=== PATIENT | male | born 1980 | race Caucasian/White ===

== ENCOUNTER 2022-12-19 14:33 | Inpatient (IN) | payer OTHER ==
[~2022-12-19] VITALS: Ht 172.7 cm; Wt 73.9 kg
[2022-12-19 14:53] VITALS: BP 145/81
[2022-12-19 15:46] LABS: BASO # 0.1 10*3/uL (0.0-0.1); BASO % 0.5 % (0.0-1.0); EOS # 0.3 10*3/uL (0.0-0.4); EOS % 3.4 % (1.0-4.0); HEMATOCRIT 44.9 % (42.0-52.0); LYMPH # 2.2 10*3/uL (1.3-4.4); LYMPH % 22.3 % (27.0-41.0); MEAN CELL VOLUME 92.2 fl (80.0-94.0); MEAN CORPUSCULAR HGB 31.2 pg (27.0-31.0); MEAN CORPUSCULAR HGB CONC 33.9 g/dl (33.0-37.0); MEAN PLATELET VOLUME 9.9 fl (9.6-12.3); MONO % 9.6 % (3.0-9.0); NEUT # 6.3 10*3/uL (2.3-7.9); NEUT % 63.6 % (47.0-73.0); PLATELET COUNT AUTOMATED 197 10*3/uL (130-400); RED BLOOD COUNT 4.87 10*6/uL (4.50-5.90); RED CELL DISTRI WIDTH 13.5 % (0-14.5)
[2022-12-19 16:00] LABS: ACT PARTIAL THROMBO TIME 28.5 SECONDS (20.0-32.1)
[2022-12-19 16:06] LABS: ALKALINE PHOSPHATASE 77 U/L (46-116); BUN 13 mg/dl (9-23); CHLORIDE 100 mmol/L (98-107); LIPASE 24 U/L (12-53); POTASSIUM 5.4 mmol/L (3.4-5.1); SGPT/ALT 32 U/L (10-49); TOTAL PROTEIN 7.6 gm/dL (6.0-8.0)
[2022-12-19 22:15] VITALS: BP 131/55
[2022-12-19] MEDS ORDERED: SUBOXONE 8 MG-1 EACH SL (22:38)
[2022-12-19] MEDS ORDERED: LIBRIUM5 MG PO (22:40)
[2022-12-19] MEDS ORDERED: NATURE'S BLEND F1 MG PO (22:40)
[2022-12-19] MEDS ORDERED: NEURONTIN400 MG PO (22:41)
[2022-12-19] MEDS ORDERED: MAGNESIUM200 MG PO (22:42)
[2022-12-19] MEDS ORDERED: PENICILLIN250 MG PO (22:43)
[2022-12-19] MEDS ORDERED: NATURE'S BLEND100 M2 PO (22:43)
[2022-12-19] MEDS ORDERED: TYLENOL325 M1 PO (22:44)
[2022-12-19] MEDS ORDERED: CLONIDINE HCL0.1 M1 PO (22:45)
[2022-12-19] MEDS ORDERED: COLACE100 MG PO (22:46)
[2022-12-19] MEDS ORDERED: ATARAX,VISTARIL50 MG PO (22:47)
[2022-12-19] MEDS ORDERED: MELATONIN10 M4 PO (22:48)
[2022-12-19] MEDS ORDERED: Motrin,Rufen800 MG PO (22:48)
[2022-12-19] MEDS ORDERED: LOPERAMIDE HCL2 MG PO (22:48)
[2022-12-19] MEDS ORDERED: MILK OF MA400 MG/51 PO (22:49)
[2022-12-19] MEDS ORDERED: MYLANTA MAXIMU355 M1 PO (22:50)
[2022-12-19] MEDS ORDERED: NARCAN4 MG NAS (22:51)
[2022-12-19] MEDS ORDERED: REMERON15 M2 PO (22:52)
[2022-12-19] MEDS ORDERED: ONDANSETRON4 MG SL (22:53)
[2022-12-19] MEDS ORDERED: ROPINIROLE HYD0.5 MG PO (22:53)
[2022-12-20] VITALS: BP 131/55
[2022-12-20 06:14] LABS: BASO # 0.1 10*3/uL (0.0-0.1); BASO % 0.4 % (0.0-1.0); EOS # 0.3 10*3/uL (0.0-0.4); EOS % 2.6 % (1.0-4.0); HEMATOCRIT 43.4 % (42.0-52.0); LYMPH # 2.4 10*3/uL (1.3-4.4); LYMPH % 21.3 % (27.0-41.0); MEAN CORPUSCULAR HGB 30.6 pg (27.0-31.0); MEAN CORPUSCULAR HGB CONC 33.6 g/dl (33.0-37.0); MEAN PLATELET VOLUME 10.3 fl (9.6-12.3); MONO # 1.3 10*3/uL (0.1-1.0); NEUT # 7.3 10*3/uL (2.3-7.9); NEUT % 64.3 % (47.0-73.0); PLATELET COUNT AUTOMATED 221 10*3/uL (130-400); RED BLOOD COUNT 4.77 10*6/uL (4.50-5.90); RED CELL DISTRI WIDTH 13.6 % (0-14.5); WHITE BLOOD COUNT 11.3 10*3/uL (4.8-10.8)
[2022-12-20 07:03] LABS: BUN 12 mg/dl (9-23); CHLORIDE 103 mmol/L (98-107); CHOLESTEROL 156 mg/dL (<200); LDL CHOLESTEROL 92 mg/dL (9-159); POTASSIUM 4.7 mmol/L (3.4-5.1); THYROID STIM HORMONE (HS) 3.051 uIU/ml (0.550-4.780); TRIGLYCERIDES 94 mg/dl (<150)
[2022-12-20 07:23] LABS: VITAMIN D, 25-HYDROXY 20.5 ng/mL (30-100)
[2022-12-20 08:00] VITALS: BP 121/76
[2022-12-20 12:00] VITALS: BP 118/62
[2022-12-20 16:00] VITALS: BP 116/77
[2022-12-20 20:00] VITALS: BP 120/89
[2022-12-21] MEDS ORDERED: CLEOCIN HCL150 MG PO (08:25)
== END 2022-12-20 21:37 | disposition left against medical advice (07) | DRG 383 ==
LOC: ED 14:33 → 4E 19:20 → EDHOLD 19:20 → 4E 21:48
PROVIDERS: Physician Assistant; Student in an Organized Health Care Education/Training Program; ADMIT Internal Medicine; ATTEND Internal Medicine
DX: L03.211 Cellulitis of face (principal); E87.5 Hyperkalemia; K02.9 Dental caries, unspecified; K04.7 Periapical abscess without sinus; E87.1 Hypo-osmolality and hyponatremia; F17.210 Nicotine dependence, cigarettes, uncomplicated; R73.9 Hyperglycemia, unspecified; F10.20 Alcohol dependence, uncomplicated; E55.9 Vitamin D deficiency, unspecified; Z79.1 Long term (current) use of non-steroidal anti-inflammatories (NSAID); Z79.899 Other long term (current) drug therapy; Z71.6 Tobacco abuse counseling; Z53.29 Procedure and treatment not carried out because of patient's decision for other reasons

== ENCOUNTER 2023-01-19 21:24 | Emergency (ER) | payer OTHER ==
[~2023-01-19] VITALS: Ht 175.2 cm; Wt 86.2 kg
[~2023-01-19 21:24] MED LIST: ATARAX,VISTARIL50 MG PO; CLEOCIN HCL150 MG PO; CLONIDINE HCL0.1 M1 PO; COLACE100 MG PO; LIBRIUM5 MG PO; LOPERAMIDE HCL2 MG PO; MAGNESIUM200 MG PO; MELATONIN10 M4 PO; MILK OF MA400 MG/51 PO; MYLANTA MAXIMU355 M1 PO; Motrin,Rufen800 MG PO; NARCAN4 MG NAS; NATURE'S BLEND F1 MG PO; NATURE'S BLEND100 M2 PO; NEURONTIN400 MG PO; ONDANSETRON4 MG SL; PENICILLIN250 MG PO; REMERON15 M2 PO; ROPINIROLE HYD0.5 MG PO; SUBOXONE 8 MG-1 EACH SL; TYLENOL325 M1 PO
[2023-01-20] MEDS ORDERED: ELIMITE 5%60 GM T (00:43)
== END 2023-01-19 21:52 | disposition left against medical advice (07) ==
LOC: ED 21:24
DX: L29.9 Pruritus, unspecified (principal); Z98.890 Other specified postprocedural states; F17.200 Nicotine dependence, unspecified, uncomplicated; F19.10 Other psychoactive substance abuse, uncomplicated

== ENCOUNTER 2023-01-20 00:13 | Emergency (ER) | payer OTHER ==
[~2023-01-20] VITALS: Ht 175.2 cm; Wt 86.2 kg
[2023-01-20] MEDS ORDERED: ELIMITE 5%60 GM T (00:43)
== END 2023-01-20 00:48 | disposition home or self-care (01) ==
LOC: ED 00:13
DX: B86 Scabies (principal); F19.10 Other psychoactive substance abuse, uncomplicated; R73.9 Hyperglycemia, unspecified; Z98.890 Other specified postprocedural states; F17.200 Nicotine dependence, unspecified, uncomplicated; D64.9 Anemia, unspecified

== ENCOUNTER → 2023-03-16 | Emergency (ER) | payer OTHER ==
[~2023-03-16] MED LIST changes: +ELIMITE 5%60 GM T
[2023-03-16 14:07] LABS: BASO # 0.1 10*3/uL (0.0-0.1); BASO % 0.9 % (0.0-1.0); EOS # 0.2 10*3/uL (0.0-0.4); EOS % 2.1 % (1.0-4.0); HEMATOCRIT 43.4 % (42.0-52.0); LYMPH % 28.4 % (27.0-41.0); MEAN CELL VOLUME 89.7 fl (80.0-94.0); MEAN CORPUSCULAR HGB 30.4 pg (27.0-31.0); MEAN CORPUSCULAR HGB CONC 33.9 g/dl (33.0-37.0); MEAN PLATELET VOLUME 9.9 fl (9.6-12.3); MONO # 0.7 10*3/uL (0.1-1.0); NEUT # 4.1 10*3/uL (2.3-7.9); NEUT % 58.3 % (47.0-73.0); PLATELET COUNT AUTOMATED 241 10*3/uL (130-400); RED BLOOD COUNT 4.84 10*6/uL (4.50-5.90); RED CELL DISTRI WIDTH 13.9 % (0-14.5)
[2023-03-16 14:35] LABS: ALKALINE PHOSPHATASE 92 U/L (46-116); BUN 17 mg/dl (9-23); CHLORIDE 109 mmol/L (98-107); POTASSIUM 3.6 mmol/L (3.4-5.1); SGPT/ALT 28 U/L (10-49); TOTAL PROTEIN 8.5 gm/dL (6.0-8.0)
== END ==
LOC: ED 13:36
PROVIDERS: Emergency Medicine
DX: F22 Delusional disorders (principal); F15.10 Other stimulant abuse, uncomplicated; Z98.890 Other specified postprocedural states; F17.200 Nicotine dependence, unspecified, uncomplicated

== ENCOUNTER 2023-03-18 20:08 | Emergency (ER) | payer OTHER ==
[~2023-03-18] VITALS: Ht 175.2 cm; Wt 81.6 kg
[2023-03-18 20:33] LABS: BASO # 0.1 10*3/uL (0.0-0.1); BASO % 0.9 % (0.0-1.0); EOS # 0.1 10*3/uL (0.0-0.4); EOS % 1.8 % (1.0-4.0); LYMPH # 1.7 10*3/uL (1.3-4.4); LYMPH % 25.4 % (27.0-41.0); MEAN CELL VOLUME 87.3 fl (80.0-94.0); MEAN CORPUSCULAR HGB 30.6 pg (27.0-31.0); MEAN PLATELET VOLUME 9.5 fl (9.6-12.3); MONO # 0.5 10*3/uL (0.1-1.0); MONO % 7.9 % (3.0-9.0); NEUT # 4.3 10*3/uL (2.3-7.9); NEUT % 63.9 % (47.0-73.0); PLATELET COUNT AUTOMATED 218 10*3/uL (130-400); RED BLOOD COUNT 4.58 10*6/uL (4.50-5.90); RED CELL DISTRI WIDTH 13.2 % (0-14.5); WHITE BLOOD COUNT 6.7 10*3/uL (4.8-10.8)
[2023-03-18 20:55] LABS: ALKALINE PHOSPHATASE 82 U/L (46-116); BUN 15 mg/dl (9-23); CHLORIDE 107 mmol/L (98-107); POTASSIUM 3.4 mmol/L (3.4-5.1); SGPT/ALT 26 U/L (10-49); TOTAL PROTEIN 7.8 gm/dL (6.0-8.0)
[2023-03-18 20:59] LABS: ETHYL ALCOHOL < 3.0 mg/dl (<3)
== END 2023-03-18 21:16 | disposition left against medical advice (07) ==
LOC: ED 20:08
PROVIDERS: Internal Medicine
DX: F20.0 Paranoid schizophrenia (principal); Z98.890 Other specified postprocedural states; F17.200 Nicotine dependence, unspecified, uncomplicated; F19.10 Other psychoactive substance abuse, uncomplicated